=== PATIENT | female | born 1990 | race Two or more races ===

== ENCOUNTER 2022-06-14 19:28 | Emergency (ER) | payer OTHER ==
[~2022-06-14] VITALS: Ht 165.1 cm; Wt 73.5 kg
[2022-06-14] MEDS ORDERED: PRENA1 TRUE CO1 EACH PO (19:40)
== END 2022-06-15 03:40 ==
LOC: ER 19:28
DX: O20.9 Hemorrhage in early pregnancy, unspecified (principal); Z3A.01 Less than 8 weeks gestation of pregnancy